=== PATIENT | male | born 1995 | race Two or more races ===

== ENCOUNTER → 2020-06-23 14:16 | Outpatient (BNVA) | payer OTHER, SELFPAY | PROVIDERS: Family Provider Family Medicine; PCP Family Medicine; Visit Provider Nurse Practitioner Family | DX: Z20.822 Contact with and (suspected) exposure to COVID-19 (principal) | CPT/HCPCS: 87635 ==

== ENCOUNTER → 2020-08-25 10:51 | Outpatient (BNVA) | payer OTHER, SELFPAY | PROVIDERS: Family Provider Family Medicine; PCP Family Medicine; Visit Provider Nurse Practitioner Family | DX: Z20.822 Contact with and (suspected) exposure to COVID-19 (principal) | CPT/HCPCS: 87635 ==

== ENCOUNTER → 2021-04-17 10:09 | Outpatient (BNVA) | payer OTHER, SELFPAY | PROVIDERS: Family Provider Family Medicine; PCP Family Medicine; Visit Provider Emergency Medicine | DX: J02.9 Acute pharyngitis, unspecified (principal) | CPT/HCPCS: 87070; 87880 ==

== ENCOUNTER 2023-03-12 23:18 | Emergency (ER) | payer OTHER, SELFPAY ==
[2023-03-12 23:20] VITALS: BP 193/106; PULSE 82; RESP 16; TEMP 36.6; O2SAT 97
[2023-03-12 23:41] LABS: Glucose Point of Care 92 mg/dL (70-110)
--- NOTE | 2023-03-12 23:45 | CTR_ITS ---
PROCEDURE INFORMATION: Exam: CT Head Without Contrast Exam date and time: 03/13/2023 12:11 AM Age: 27 years old Clinical indication: Numbness / parasthesia; Right; Patient HX: RT sided numbness with dizziness and RT sided hearing loss prior to arrival. Now resolved. ; Additional info: L sided numbness, headache, L sided hearing loss, resolved TECHNIQUE: Imaging protocol: Computed tomography of the head without contrast. Radiation optimization: All CT scans at this facility use at least one of these dose optimization techniques: automated exposure control; mA and/or kV adjustment per patient size (includes targeted exams where dose is matched to clinical indication); or iterative reconstruction. COMPARISON: No relevant prior studies available. RADIATION DOSE METRICS: Total DLP (mGy-cm): 1015.28 FINDINGS: Brain: Normal. No hemorrhage. Unremarkable white matter. No mass effect. Cerebral ventricles: No ventriculomegaly. Paranasal sinuses: Visualized sinuses are unremarkable. No fluid levels. Mastoid air cells: Visualized mastoid air cells are well aerated. Bones/joints: Unremarkable. No acute fracture. Soft tissues: Unremarkable. CT/CT head wo con* [id number] IMPRESSION: No acute intracranial abnormality.
[2023-03-12 23:52] LABS: Basophils # 0.1 10^3/uL (0.0-0.1); Basophils % 0.5 %; Eosinophils # 0.8 10^3/uL (0.0-0.8); Eosinophils % 7.2 %; Hematocrit 47.2 % (37-53); Lymphocytes # 2.6 10^3/uL (0.8-4.8); Lymphocytes % 24.2 %; Mean Corpuscular HGB Conc 33.3 g/dL (30-55); Mean Corpuscular Hemoglobin 27.4 pg (27-33); Mean Corpuscular Volume 82.5 fl (82-101); Mean Platelet Volume 9.6 fL (7.4-10.4); Monocytes # 0.7 10^3/uL (0.2-0.9); Monocytes % 6.7 %; Neutrophils # 6.44 10^3/uL (1.8-7.7); Neutrophils % 61.1 %; Nucleated Red Blood Cells % 0 %; Platelet Count 280 10^3/cmm (157-399); Red Blood Count 5.72 10^6/uL (3.85-5.65); Red Cell Distribution Width 13.4 % (12.1-15.1); White Blood Count 10.54 10^3/uL (3.29-11.43)
--- NOTE | 2023-03-12 23:52 | ECG_ITS ---
[facility] Test Date: 2023-03-12 Pat Name: Bhaskar Frost Department: Room: Gender: Male Digital Solution Architect: : 1995 Requested By: Stanley Daniels Order Number: [id number] Mishel MD: Talon Long M.D. Measurements Intervals Shade Rate: 73 P: 61 SC: 160 QRS: -27 QRSD: 108 T: 39 QT: 374 QTc: 415 Interpretive Statements SINUS RHYTHM BORDERLINE LEFT AXIS DEVIATION [QRS AXIS < -20] No previous ECG available for comparison Electronically Signed On 03-13-2023 16:23:45 YARN TESTER by Talon Long M.D. [id number]
[2023-03-13 00:04] LABS: INR 1.06 (0.8-1.2)
[2023-03-13 00:05] LABS: Partial Thromboplastin Time 30.1 SECONDS (23.9-36.7)
[2023-03-13 00:11] LABS: Alanine Aminotransferase 13 U/L (0-41); Albumin Level 4.2 g/dL (3.5-5.2); Alkaline Phosphatase 123 U/L (40-130); Anion Gap 13.1 (5-19); Aspartate Amino Transferase 13 U/L (0-40); Blood Urea Nitrogen 17 mg/dL (6-20); Calcium 9.4 mg/dL (8.5-10.5); Carbon Dioxide 24 mmol/L (22-29); Chloride 106 mmol/L (98-107); Globulin 3.9 g/dL (1.3-4.6); Glomerular Filtration Rate 80.3 mL/min (90-130); Glucose 101 mg/dL (65-115); Osmolality Calculated 290 mOsm/kg (285-295); Potassium 4.1 mmol/L (3.5-5.1); Sodium 139 mmol/L (136-145); Total Bilirubin 0.2 mg/dL (0.15-1.2); Total Protein 8.1 g/dL (6.6-8.7)
[2023-03-13 00:20] LABS: Alcohol Level < 10 mg/dL (0-10)
--- NOTE | 2023-03-13 00:51 | ED_ITS ---
HPI - Weakness 2 General: Chief complaint: Weakness Stated complaint: fatigue, right side of body went numb deaf R now Time Seen by Provider: 03/12/23 23:32 History of Present Illness: 27-year-old male with a history of hyper tension. He presents after a few minute episode at home of right-sided upper extremity facial and trunk numbness, with some upper extremity weakness. He notes that he lost his hearing momentarily on that side as well. He had had a headache just prior to that, and the headache continued for an hour or so afterwards. Symptoms are resolved now. Neurologic symptoms lasted minutes, headache lasted no more than a couple of hours. Associated symptoms: Reports headache(s); Denies chest pain, chills, confusion, fever(s), nausea or vomiting Review of Systems 2 Const: Denies: fever(s), chills or body aches Eyes: Denies: change in vision Card: Denies: chest pain or palpitations Resp: Denies: dyspnea, productive cough, non-productive cough or wheezing GI: Denies: abdominal pain, nausea, vomiting, diarrhea or hematochezia Skin/Breast: Denies: rash Neuro: Reports: headache(s), numbness in extremities, weakness in extremities, sensory changes and dizziness; Denies: lack of coordination, difficulty walking, confusion, Slurred speech present or seizure-like activity PFSH ED 2 PFSH: Social History Smoking and tobacco/nicotine status: never used tobacco/nicotine Alcohol intake: never Substance/Drug Use: never Physical Exam 2 Const: COMMON NORMALS: no acute distress GENERAL APPEARANCE: cooperative; not ill appearing and not frail appearing HENMT: COMMON NORMALS: normocephalic, atraumatic and Normal external nose present HEAD & SCALP: normocephalic and atraumatic FACE & SINUS: normal facial exam and face symmetric NOSE: Normal external nose present Eye: COMMON NORMALS: Equal, round and reactive pupils present and EOMs intact bilaterally PUPIL: Yes Equal, round and reactive pupils present Neck/C-Spine: GENERAL: Yes trachea midline Chest: CHEST: Yes Symmetrical chest wall rise Resp: COMMON NORMALS: normal respiratory effort, No retractions, No use of accessory muscles and clear to auscultation bilaterally AUSCULTATION: clear to auscultation bilaterally Cardio: COMMON NORMALS: regular rate and regular rhythm RATE: regular rate RHYTHM: regular rhythm GI: COMMON NORMALS: Normal to inspection, nondistended, normoactive bowel sounds present Extremity: COMMON NORMALS: no pedal edema Neuro: LORNA COMA SCALE: document GCS findings Switzer coma scale eye opening: Spontaneous Lorna coma scale verbal response: Orientated Switzer coma scale motor response: Obey commands Lorna coma scale total score: 15 S ENSORY EXAM: Yes extremities (intact) Psych: COMMON NORMALS: speech normal SPEECH: Yes normal speech Skin: COMMON NORMALS: no rashes or lesions noted GENERAL SKIN EXAM: no rashes or lesions noted Course 2 Vital Signs: Vital signs: Vital Signs Temperature 97.8 F 03/12/23 23:20 Pulse Rate 76 03/13/23 01:26 Respiratory Rate 16 03/13/23 01:26 Blood Pressure 148/98 03/13/23 01:26 Pulse Oximetry 99 03/13/23 01:26 Oxygen Delivery Me thod Room Air 03/12/23 23:20 MDM - Weakness Medical Decision Making The patient's symptoms are resolved. His blood pressure is down to 136/87, heart rate 73. CBC is normal. BMP is normal. Head CT is normal. Other laboratory is not remarkable. With resolution of symptoms, blood pressure now under control, will allow discharge for outpatient follow-up. Will have him monitor his blood pressure and follow-up with a primary physician. Lab Data 03/12/23 23:44 03/12/23 23:[address] 03/12/23 23:45 IMPRESSION: No acute intracranial abnormality. Laboratory Results WBC 10.54 10^3/uL (3.29-11.43) 03/12/23 23:44 RBC 5.72 10^6/uL (3.85-5.65) H 03/12/23 23:44 Hgb 15.70 g/dL (11.27-16.99) 03/12/23 23:44 Hct 47.2 % (37-53) 03/12/23 23:44 MCV 82.5 fl (82-101) 03/12/23 23:44 MCH 27.4 pg (27-33) 03/12/23 23:44 MCHC 33.3 g/dL (30-55) 03/12/23 23:44 RDW 13.4 % (12.1-15.1) 03/12/23 23:44 Plt Count 280 10^3/cmm (157-399) 03/12/23 23:44 MPV 9.6 fL (7.4-10.4) 03/12/23 23:44 Neut % (Auto) 61.1 % 03/12/23 23:44 Lymph % (Auto) 24.2 % 03/12/23 23:44 Dickson % (Auto) 6.7 % 03/12/23 23:44 Eos % (Auto) 7.2 % 03/12/23 23:44 Baso % (Auto) 0.5 % 03/12/23 23:44 Neut # (Auto) 6.44 10^3/uL (1.8-7.7) 03/12/23 23:44 Lymph # (Auto) 2.6 10^3/uL (0.8-4.8) 03/12/23 23:44 Dickson # (Auto) 0.7 10^3/uL (0.2-0.9) 03/12/23 23:44 Eos # (Auto) 0.8 10^3/uL (0.0-0.8) 03/12/23 23:44 Baso # (Auto) 0.1 10^3/uL (0.0-0.1) 03/12/23 23:44 Nucleated RBC % (auto) 0 % 03/12/23 23:44 Nucleated RBCs # 0.0 /100WBC 03/12/23 23:44 PT 14.10 SECONDS (12.1-14.9) 03/12/23 23:44 INR 1.06 (0.8-1.2) 03/12/23 23:44 APTT 30.1 SECONDS (23.9-36.7) 03/12/23 23:44 Sodium 139 mmol/L (136-145) 03/12/23 23:44 Potassium 4.1 mmol/L (3.5-5.1) 03/12/23 23:44 Chloride 106 mmol/L (98-107) 03/12/23 23:44 Carbon Dioxide 24 mmol/L (22-29) 03/12/23 23:44 Anion Gap 13.1 (5-19) 03/12/23 23:44 BUN 17 mg/dL (6-20) 03/12/23 23:44 Creatinine 1.1 mg/dL (0.7-1.2) 03/12/23 23:44 GFR Calculation 80.3 mL/min (90-130) L 03/12/23 23:44 Glucose 101 mg/dL (65-115) 03/12/23 23:44 POC Glucose 92 mg/dL (70-110) 03/12/23 23:37 Calculated Osmolality 290 mOsm/kg (285-295) 03/12/23 23:44 Calcium 9.4 mg/dL (8.5-10.5) 03/12/23 23:44 Magnesium 2.0 mg/dL (1.7-2.3) 03/12/23 23:44 Total Bilirubin 0.2 mg/dL (0.15-1.2) 03/12/23 23:44 AST 13 U/L (0-40) 03/12/23 23:44 ALT 13 U/L (0-41) 03/12/23 23:44 Alkaline Phosphatase 123 U/L (40-130) 03/12/23 23:44 Total Protein 8.1 g/dL (6.6-8.7) 03/12/23 23:44 Albumin 4.2 g/dL (3.5-5.2) 03/12/23 23:44 Globulin 3.9 g/dL (1.3-4.6) 03/12/23 23:44 Ethyl Alcohol < 10 mg/dL (0-10) 03/12/23 23:44 All radiology interpretation(s) finalized by discharge Discharge Plan Discharge Patient Disposition: Home Clinical Impression: Episode of transient neurologic symptoms Condition: Stable Prescriptions: Changed amlodipine 2.5 mg tablet 5 mg PO DAILY Qty: 30 0RF No Action famotidine [Acid String Cutter (famotidine)] 20 mg tablet 20 mg PO BID 42 Days Qty: 84 1RF dexamethasone 2 mg tablet 10 mg PO DAILY 1 Days Qty: 5 0RF Rx Instructions: take all at same time today Discharge Orders: Discharge ED (Routine); Ordered 03/13/23 Ordered By: Stanley Martinez Referrals: Richard Ballesteros Jr, MD [Family Provider] - 4-7 days Patient Instructions: Opioid Safety, Pain Management Activity Restrictions/Additional Instructions: Monitor your blood pressure twice daily. Write numbers down. If blood pressures remain greater than 150/90, treat accordingly with medication. Follow-up with your primary care physician next week. Present blood pressure numbers to them for further advice. Return to the emergency department immediately for vision changes, weakness, language problems, numbness, other concerning symptoms. Coding Level of Care Code ED Revenue Settlements Administrator for Carlos Cooper NIH stroke score NIHSS Level Of Consciousness - 1a: 0 Level Of Consciousness Questions - 1b: Both Correct Level Of Consciousness Commands - 1c: Both Correct Best Gaze - 2: Normal Visual [place] - 3: No Visual Loss Facial Palsy - 4: Normal Motor Arm Right - 5: No Drift Motor Arm Left - 5: No Drift Motor Leg Right - 6: No Drift Motor Leg Left - 6: No Drift Limb Ataxia - 7: Absent Sensory - 8: Normal Best Language - 9: No Aphasia Dysarthia - 10: Normal Extinction And Inattention - 11: 0 Score Total Score: 0
[2023-03-13 00:59] VITALS: BP 136/87; PULSE 66; RESP 20; O2SAT 95
[2023-03-13 01:00] VITALS: BP 136/87; PULSE 67; RESP 20; O2SAT 97
[2023-03-13 01:26] VITALS: BP 148/98; PULSE 76; RESP 16; O2SAT 99
== END 2023-03-13 01:28 | disposition home or self-care (01) ==
PROVIDERS: Emergency Provider Emergency Medicine; Family Provider Family Medicine
DX: R29.5 Transient paralysis (principal)
CPT/HCPCS: 36416; 70450; 80053; 80307; 82962; 83735; 85025; 85610; 85730; 93005; 99285